=== PATIENT | male | born 1940 | race Caucasian/White ===

== ENCOUNTER 2021-01-24 17:16 | Inpatient (IN) | payer MEDICARE, OTHER ==
[~2021-01-24] VITALS: Ht 175.3 cm; Wt 73.5 kg
[~2021-01-24 17:16] MED LIST changes: -IRON1TAB37 PO
[2021-01-24] MEDS ORDERED: SODIUM CHLORIDE FLUSH 10ML SYR IVF ONE (18:00)
--- NOTE | 2021-01-24 19:42 | NUR ---
datacap developer note: Pt to room from lobby via wheelchair
[2021-01-24 21:11] LABS: ABSOLUTE RETICS # 0.069 x10^6/uL (0.5-1.5); RED BLOOD COUNT 2.47 x10^6/uL (4.38-5.82); RETICULOCYTE COUNT % 2.78 % (0.5-1.5)
[2021-01-24 21:18] VITALS: BP 111/39
[2021-01-24 21:23] LABS: INTERNATIONAL NORMALIZED RATIO 1.11 (0.93-1.1); PROTHROMBIN TIME 11.8 Seconds (9.6-11.5)
[2021-01-24] MEDS ORDERED: ONDANSETRON 2MG/ML, 2ML IVPush PRN (21:30)
[2021-01-24] MEDS ORDERED: POLYETHYLENE GLYCOL 17 GM PACKET PO PRN (21:30)
[2021-01-24] MEDS ORDERED: ACETAMINOPHEN 325 MG TABLET PO PRN (21:30)
[2021-01-24] MEDS ORDERED: MELATONIN 5 MG TABLET PO PRN (21:30)
[2021-01-24] MEDS ORDERED: morphine SULFATE 10 MG/ML, 1ML IVPush PRN (21:30)
[2021-01-24] MEDS ORDERED: LABETALOL 5MG/ML, 20ML IVPush PRN (21:30)
[2021-01-24 21:37] VITALS: BP 129/44
--- NOTE | 2021-01-24 23:14 | NUR ---
PT LAYING IN BED, ALL NEEDS IN REACH, CALL LIGHT IN REACH, NAD AT THIS TIME
[2021-01-25] VITALS (12 sets, daily range): BP systolic 107–172; BP diastolic 46–70
[2021-01-25] MEDS: FAMOTIDINE 20 MG/2 ML IVPush SCH ×3 (00:46→21:02)
[2021-01-25 08:49] LABS: MEAN CORPUSCULAR HEMOGLOBIN 23.7 pg (27.5-34.5); MEAN CORPUSCULAR HGB CONC 31.7 g/dL (33.2-36.2); MEAN PLATELET VOLUME 10.1 fL (7.4-10.4); PLATELET COUNT 271 x10^3/uL (130-400); RED BLOOD COUNT 3.09 x10^6/uL (4.38-5.82); RED CELL DISTRIBUTION WIDTH 24.9 % (9.4-14.8)
[2021-01-25 08:55] LABS: ANION GAP 9 mmol/L (5-15); CALCIUM 8.4 mg/dL (8.5-10.1); CHLORIDE 112 mmol/L (98-107); CREATININE 1.26 mg/dL (0.7-1.3)
[2021-01-25 09:03] LABS: ACANTHOCYTES 1+; ANISOCYTOSIS 1+; CRENATED 1+; HYPOCHROMIA 1+; LYMPH#(MANUAL) 2.29 x10^3/uL (1-3.4); LYMPHS% (MANUAL) 26 % (22-44); MICROCYTOSIS 1+; MONOS#(MANUAL) 0.35 x10^3/uL (0.3-2.7); MONOS% (MANUAL) 4 % (2-9); OVALOCYTES 1+; POLYCHROMASIA 1+; SCHISTOCYTES 1+; SEG#(MANUAL) 6.16 x10^3/uL (1.8-6.8); SEGS% (MANUAL) 70 % (42-75)
[2021-01-25 09:04] LABS: <PLATELET ESTIMATE> ADEQUATE; LARGE PLATELETS 1+
[2021-01-25] MEDS ORDERED: CYANOCOBALAMIN 1,000 MCG/ML, 1ML IM ONE (13:00)
[2021-01-25] MEDS ORDERED: IRON DEXTRAN COMPLEX 25 MG in SODIUM CHLORIDE 0.9% 50 ML IV ONE (13:00)
[2021-01-25] MEDS ORDERED: MAGNESIUM SULFATE PMX 2GM/50ML 50 ML IV ONE (13:00)
[2021-01-25] MEDS ORDERED: EPINEPHRINE 1 MG/ML, 1ML SQ PRN (13:30)
[2021-01-25] MEDS ORDERED: IRON1TAB37 PO (13:58)
[2021-01-25] MEDS ORDERED: IRON SUCROSE COMPLEX 100MG/5ML IV ONE (14:00)
[2021-01-25] MEDS: MULTIVITS,STRESS FORMULA 1 TABLET PO SCH (14:30)
[2021-01-25] MEDS: ZINC SULFATE 220 MG CAPSULE PO SCH (14:30)
[2021-01-25] MEDS: CHOLECALCIFEROL 5,000u TAB PO SCH (14:31)
[2021-01-25] MEDS: ASCORBIC ACID 500 MG TABLET PO SCH ×2 (14:31→16:44)
[2021-01-25] MEDS ORDERED: IRON DEXTRAN COMPLEX 1,700 MG in SODIUM CHLORIDE 0.9% 250 ML IV ONE (17:00)
[2021-01-25 23:45] LABS: OCCULT BLOOD POSITIVE (NEGATIVE)
[2021-01-26] VITALS (11 sets, daily range): BP systolic 132–173; BP diastolic 55–73
[2021-01-26 09:17] LABS: BASOPHILS % (AUTO) 1 % (0-1); EOSINOPHILS % (AUTO) 5 % (1-7); LYMPHOCYTES % (AUTO) 12 % (22-44); MEAN CORPUSCULAR HEMOGLOBIN 24.8 pg (27.5-34.5); MEAN CORPUSCULAR HGB CONC 32.7 g/dL (33.2-36.2); MEAN PLATELET VOLUME 9.3 fL (7.4-10.4); MONOCYTES % (AUTO) 9 % (2-9); NEUTROPHILS % (AUTO) 73 % (42-75); PLATELET COUNT 270 x10^3/uL (130-400); RED BLOOD COUNT 3.58 x10^6/uL (4.38-5.82); RED CELL DISTRIBUTION WIDTH 24.3 % (9.4-14.8)
[2021-01-26] MEDS: ASCORBIC ACID 500 MG TABLET PO SCH (09:48)
[2021-01-26] MEDS: MULTIVITS,STRESS FORMULA 1 TABLET PO SCH (09:48)
[2021-01-26] MEDS: ZINC SULFATE 220 MG CAPSULE PO SCH (09:48)
[2021-01-26] MEDS: CHOLECALCIFEROL 5,000u TAB PO SCH (09:48)
[2021-01-26] MEDS: FAMOTIDINE 20 MG/2 ML IVPush SCH (09:48)
[2021-01-26 10:03] LABS: <PLATELET ESTIMATE> ADEQUATE; ACANTHOCYTES 1+; ANISOCYTOSIS 1+; ECHINOCYTES 1+; HYPOCHROMIA 1+; MICROCYTOSIS 1+; POLYCHROMASIA 1+; SPHEROCYTES 1+
[2021-01-26 10:05] LABS: <PLT MORPHOLOGY> NORMAL PLT MORPH; SCHISTOCYTES 1+
== END 2021-01-26 17:15 | disposition home or self-care (01) | DRG 812 ==
LOC: ED 21:52 → EDIP 22:48 → 3N 23:35
PROVIDERS: ADMIT Internal Medicine; ATTEND Family Medicine
PROC: 30233N1 Transfusion of Nonautologous Red Blood Cells into Peripheral Vein, Percutaneous Approach (ICD-10-PCS; principal; 2021-01-24)
DX: D50.9 Iron deficiency anemia, unspecified (principal); I71.4 Abdominal aortic aneurysm, without rupture; I70.209 Unspecified atherosclerosis of native arteries of extremities, unspecified extremity; F19.10 Other psychoactive substance abuse, uncomplicated; E78.5 Hyperlipidemia, unspecified; I10 Essential (primary) hypertension; I25.10 Atherosclerotic heart disease of native coronary artery without angina pectoris; T39.395A Adverse effect of other nonsteroidal anti-inflammatory drugs [NSAID], initial encounter; N40.0 Benign prostatic hyperplasia without lower urinary tract symptoms; Z86.73 Personal history of transient ischemic attack (TIA), and cerebral infarction without residual deficits; Z79.02 Long term (current) use of antithrombotics/antiplatelets; Z87.891 Personal history of nicotine dependence; Z95.1 Presence of aortocoronary bypass graft; Y92.89 Other specified places as the place of occurrence of the external cause
CPT/HCPCS: 36415; 36430; 80048; 82272; 82607; 82728; 83010; 83540; 83550; 83605; 83615; 83735; 85014; 85018; 85025; 85045; 85610; 85730; 86850; 86900; 86923; 99285; G0378; J1750; J1756; J3420; J3475; P9016

== ENCOUNTER → 2021-01-24 | Outpatient (CLI) | payer OTHER ==
[~2021-01-24] MED LIST: ASPI81TA45 PO; ATOR80TA PO; BRIM5DRO3 EACHEYE; CLOP75TA PO; CO Q10 PO; IRON1TAB37 PO; LATA2.5D4 EACHEYE; LOSA100T14 PO; METO25TA35 PO; TAMS-11 PO; VITA1TAB19 PO; vitamin c PO; vitamin d PO
[2021-01-24 16:11] LABS: BASOPHILS % (AUTO) 1 % (0-1); EOSINOPHILS % (AUTO) 1 % (1-7); LYMPHOCYTES % (AUTO) 11 % (22-44); MEAN CORPUSCULAR HEMOGLOBIN 19.9 pg (27.5-34.5); MEAN PLATELET VOLUME 9.8 fL (7.4-10.4); MONOCYTES % (AUTO) 6 % (2-9); NEUTROPHILS % (AUTO) 81 % (42-75); PLATELET COUNT 314 x10^3/uL (130-400); RED BLOOD COUNT 2.53 x10^6/uL (4.38-5.82)
[2021-01-24 16:36] LABS: ANION GAP 9 mmol/L (5-15); CALCIUM 8.3 mg/dL (8.5-10.1); CHLORIDE 113 mmol/L (98-107)
[2021-01-24 16:37] LABS: CREATININE 1.14 mg/dL (0.7-1.3)
[2021-01-24 16:39] LABS: ALANINE AMINOTRANSFERASE 12 U/L (12-78); ALBUMIN 2.9 g/dL (3.4-5.0); ALKALINE PHOSPHATASE 99 U/L (45-117); BILIRUBIN,TOTAL 0.6 mg/dL (0.2-1.0); TOTAL PROTEIN 6.8 g/dL (6.4-8.2)
[2021-01-24 16:43] LABS: MEAN CORPUSCULAR HGB CONC 29.1 g/dL (33.2-36.2)
[2021-01-24 20:39] LABS: HYPOCHROMIA 3+; MICROCYTOSIS 2+
[2021-01-24 20:40] LABS: ACANTHOCYTES 1+; CRENATED 1+; POLYCHROMASIA 1+; SCHISTOCYTES 1+
[2021-01-24 20:41] LABS: <PLATELET ESTIMATE> ADEQUATE; GIANT PLATELETS 1+; SMALL PLATELETS 1+
== END | disposition home or self-care (01) ==
LOC: STAR 14:58
PROVIDERS: ATTEND Surgery
DX: Z01.818 Encounter for other preprocedural examination (principal); J98.4 Other disorders of lung; J84.10 Pulmonary fibrosis, unspecified; R94.31 Abnormal electrocardiogram [ECG] [EKG]; J92.9 Pleural plaque without asbestos
CPT/HCPCS: 36415; 71046; 80053; 85025; 93005

== ENCOUNTER 2021-01-28 05:47 | Inpatient (IN) | payer MEDICARE, OTHER ==
[~2021-01-28] VITALS: Ht 175.3 cm; Wt 86.0 kg
[~2021-01-28 05:47] MED LIST changes: +IRON1TAB37 PO
[2021-01-28] MEDS ORDERED: EPINEPHRINE 1 MG/ML, 1ML ONE (06:44)
[2021-01-28] MEDS ORDERED: HEPARIN 1,000 UNITS/ML, 10ML ONE ×2 (06:44→11:37)
[2021-01-28] MEDS ORDERED: PROTAMINE SULFATE 10 MG/ML, 5ML ONE (06:44)
[2021-01-28] MEDS ORDERED: BUPIVACAINE/PF 0.5% ONE (06:44)
[2021-01-28] MEDS ORDERED: CHLORHEXIDINE 15 ML UDC PO ONE (07:00)
[2021-01-28] MEDS ORDERED: LACTATED RINGERS 1,000 ML IV SCH (07:00)
[2021-01-28] MEDS ORDERED: FENTANYL PF 250 MCG/5ML ONE (07:22)
[2021-01-28] MEDS ORDERED: MIDAZOLAM 1 MG/ML, 2ML ONE (08:20)
[2021-01-28] MEDS ORDERED: VASOPRESSIN 20 UNIT/ML, 1ML ONE (08:35)
[2021-01-28] MEDS ORDERED: PHENYLEPHRINE 10 MG/ML ONE (08:35)
[2021-01-28] MEDS ORDERED: HEPARIN 1,000 UNITS/ML, 30ML ONE (08:55)
[2021-01-28] MEDS ORDERED: ETOMIDATE 20 MG/10 ML ONE (09:05)
[2021-01-28] MEDS ORDERED: ROCURONIUM 10MG/ML,5ML ONE ×3 (09:05→12:24)
[2021-01-28] MEDS ORDERED: SUCCINYLCHOLINE 20 MG/ML, 10ML ONE (09:05)
[2021-01-28] MEDS ORDERED: CEFAZOLIN 1,000 MG ONE ×4 (12:24)
[2021-01-28] MEDS ORDERED: CALCIUM CHLORIDE 10%, 10ML SYR ONE (13:44)
[2021-01-28] MEDS ORDERED: THROMBIN 5,000 UNIT VIAL TP ONE (14:02)
[2021-01-28] MEDS ORDERED: EPHEDRINE 50 MG/ML, 1ML ONE (14:09)
[2021-01-28] MEDS ORDERED: FENTANYL PF 100 MCG/2ML ONE (14:51)
[2021-01-28] MEDS ORDERED: DIPHENHYDRAMINE 50 MG/ML, 1ML IVPush PRN (15:00)
[2021-01-28] MEDS ORDERED: OXYcodone 5 MG/5 ML ORAL.SOL UDC PO PRN (15:00)
[2021-01-28] MEDS ORDERED: PROMETHAZINE 25 MG/ML, 1ML IVPush PRN (15:00)
[2021-01-28] MEDS: PHENYLEPHRINE 50 MG in SODIUM CHLORIDE 0.9% 245 ML IV PRN (15:00)
[2021-01-28] MEDS ORDERED: LABETALOL 5MG/ML, 20ML IV PRN (15:00)
[2021-01-28] MEDS ORDERED: ACETAMINOPHEN 325 MG TABLET PO PRN (15:00)
[2021-01-28] MEDS ORDERED: PHENYLEPHRINE 50 MG in SODIUM CHLORIDE 0.9% 245 ML IV PRN (15:00)
[2021-01-28] MEDS ORDERED: HYDROmorphone 1 MG/ML, 1ML INJ IVPush PRN (15:00)
[2021-01-28] MEDS ORDERED: HALOPERIDOL 5 MG/ML IV PRN (15:00)
[2021-01-28] MEDS ORDERED: MEPERIDINE/PF 25MG/0.5ML IVPush PRN (15:00)
[2021-01-28] MEDS ORDERED: FENTANYL PF 100 MCG/2ML IV PRN (15:00)
[2021-01-28] MEDS ORDERED: hydrALAzine 20 MG/ML, 1ML IV PRN (15:00)
[2021-01-28] MEDS: LACTATED RINGERS 1,000 ML IV SCH ×2 (15:30→19:55)
[2021-01-28] MEDS ORDERED: morphine SULFATE 10 MG/ML, 1ML IV PRN (15:30)
[2021-01-28] MEDS ORDERED: ACETAMINOPHEN 650 MG/20.3 ML UDC PO PRN (15:30)
[2021-01-28] MEDS ORDERED: OXYcodone 5 MG/5 ML ORAL.SOL UDC ONE (15:55)
[2021-01-28] MEDS: ONDANSETRON 2MG/ML, 2ML IVPush PRN (19:49)
[2021-01-28] MEDS: ATORVASTATIN 80 MG TABLET PO SCH (20:15)
[2021-01-28] MEDS: LATANOPROST OPHTH 0.005%, 2.5ML EACHEYE SCH (20:23)
[2021-01-29] VITALS (13 sets, daily range): BP systolic 77–145; BP diastolic 39–64
[2021-01-29] MEDS: PHENYLEPHRINE 50 MG in SODIUM CHLORIDE 0.9% 245 ML IV PRN (00:24)
[2021-01-29] MEDS: ONDANSETRON 2MG/ML, 2ML IVPush PRN ×3 (03:30→20:14)
[2021-01-29] MEDS ORDERED: ENOXAPARIN 40 MG/0.4 ML SQ SCH (06:00)
[2021-01-29] MEDS: LACTATED RINGERS 1,000 ML IV SCH ×3 (06:21→19:12)
[2021-01-29 06:45] LABS: BASOPHILS % (AUTO) 0 % (0-1); EOSINOPHILS % (AUTO) 0 % (1-7); LYMPHOCYTES % (AUTO) 3 % (22-44); MEAN CORPUSCULAR HEMOGLOBIN 26.1 pg (27.5-34.5); MONOCYTES % (AUTO) 7 % (2-9); NEUTROPHILS % (AUTO) 89 % (42-75); PLATELET COUNT 197 x10^3/uL (130-400); RED CELL DISTRIBUTION WIDTH 24.8 % (9.4-14.8)
[2021-01-29 06:54] LABS: ALANINE AMINOTRANSFERASE 148 U/L (12-78); ALBUMIN 2.1 g/dL (3.4-5.0); ANION GAP 9 mmol/L (5-15); CALCIUM 7.8 mg/dL (8.5-10.1); CHLORIDE 112 mmol/L (98-107); CREATININE 1.37 mg/dL (0.7-1.3)
[2021-01-29 06:56] LABS: ALKALINE PHOSPHATASE 81 U/L (45-117); BILIRUBIN,TOTAL 1.3 mg/dL (0.2-1.0); TOTAL PROTEIN 5.2 g/dL (6.4-8.2)
[2021-01-29 07:20] LABS: ACANTHOCYTES 1+; ANISOCYTOSIS 1+; CRENATED 1+; ECHINOCYTES 1+; HYPOCHROMIA 1+; SCHISTOCYTES 1+
[2021-01-29 07:21] LABS: <PLATELET ESTIMATE> ADEQUATE; <PLT MORPHOLOGY> NORMAL PLT MORPH; SPHEROCYTES 1+
[2021-01-29 07:22] LABS: MICROCYTOSIS 1+
[2021-01-29] MEDS: IRON CARBONYL PO SCH (09:00)
[2021-01-29] MEDS: ASCORBIC ACID PO SCH (09:00)
[2021-01-29] MEDS: MULTIVITS,STRESS FORMULA 1 TABLET PO SCH (09:10)
[2021-01-29] MEDS: TAMSULOSIN 0.4 MG CAP.ER.24H PO SCH (09:10)
[2021-01-29] MEDS ORDERED: LACTATED RINGERS 1,000 ML IVBOLUS ONE (12:00)
[2021-01-29] MEDS ORDERED: LACTATED RINGERS 1,000 ML IV SCH (13:30)
[2021-01-29] MEDS ORDERED: PHENYLEPHRINE 50 MG in SODIUM CHLORIDE 0.9% 245 ML IV PRN (15:00)
[2021-01-29 19:49] LABS: ANION GAP 6 mmol/L (5-15); CHLORIDE 109 mmol/L (98-107); CREATININE 1.25 mg/dL (0.7-1.3)
[2021-01-29] MEDS: ATORVASTATIN 80 MG TABLET PO SCH (20:14)
[2021-01-29] MEDS: LATANOPROST OPHTH 0.005%, 2.5ML EACHEYE SCH (20:15)
[2021-01-30] MEDS: LACTATED RINGERS 1,000 ML IV SCH (03:15)
[2021-01-30 04:00] VITALS: BP 140/40
[2021-01-30 04:15] VITALS: BP 138/47
[2021-01-30 04:30] VITALS: BP 134/40
[2021-01-30] MEDS ORDERED: PANTOPRAZOLE 40 MG IV IVPush SCH (04:30)
[2021-01-30 04:36] LABS: BASOPHILS % (AUTO) 0 % (0-1); EOSINOPHILS % (AUTO) 0 % (1-7); LYMPHOCYTES % (AUTO) 2 % (22-44); MEAN CORPUSCULAR HEMOGLOBIN 26.7 pg (27.5-34.5); MEAN CORPUSCULAR HGB CONC 32.9 g/dL (33.2-36.2); MONOCYTES % (AUTO) 5 % (2-9); NEUTROPHILS % (AUTO) 92 % (42-75); PLATELET COUNT 151 x10^3/uL (130-400); RED BLOOD COUNT 3.17 x10^6/uL (4.38-5.82)
[2021-01-30 04:45] VITALS: BP 139/40
[2021-01-30 04:53] LABS: ALBUMIN 1.7 g/dL (3.4-5.0); ANION GAP 4 mmol/L (5-15); CALCIUM 7.6 mg/dL (8.5-10.1); CHLORIDE 109 mmol/L (98-107)
[2021-01-30 04:57] LABS: ALANINE AMINOTRANSFERASE 130 U/L (12-78); ALKALINE PHOSPHATASE 73 U/L (45-117); BILIRUBIN,TOTAL 1.3 mg/dL (0.2-1.0); CREATININE 0.98 mg/dL (0.7-1.3); TOTAL PROTEIN 4.9 g/dL (6.4-8.2)
[2021-01-30 05:00] VITALS: BP 148/45
[2021-01-30] MEDS: ONDANSETRON 2MG/ML, 2ML IVPush PRN (05:01)
[2021-01-30 05:15] VITALS: BP 150/44
[2021-01-30] MEDS ORDERED: POTASSIUM CHLORIDE 20 MEQ TAB.ER.PRT PO ONE ×2 (05:30→14:00)
[2021-01-30] MEDS ORDERED: POTASSIUM CHLORIDE 20 MEQ in SODIUM CHLORIDE 0.9% 250 ML IV ONE (05:30)
[2021-01-30] MEDS ORDERED: MAGNESIUM SULFATE PMX 2GM/50ML 50 ML IV ONE (05:30)
[2021-01-30] MEDS ORDERED: ASPIRIN 81 MG TABLET EC PO SCH (06:00)
[2021-01-30 06:33] LABS: GASTRIC OCCULT BLD POSITIVE (NEGATIVE); GASTRIC PH 4 (1-7)
[2021-01-30] MEDS ORDERED: SODIUM PHOSPHATE 10 MMOL in SODIUM CHLORIDE 0.9% 500 ML IV ONE (07:30)
[2021-01-30] MEDS: ASCORBIC ACID PO SCH (09:00)
[2021-01-30] MEDS: IRON CARBONYL PO SCH (09:00)
[2021-01-30] MEDS: PANTOPRAZOLE 40MG TABLET PO SCH ×2 (09:58→21:15)
[2021-01-30] MEDS: MULTIVITS,STRESS FORMULA 1 TABLET PO SCH (09:59)
[2021-01-30] MEDS: TAMSULOSIN 0.4 MG CAP.ER.24H PO SCH (09:59)
[2021-01-30] MEDS ORDERED: FUROSEMIDE 20 MG/2 ML IV ONE (14:00)
[2021-01-30] MEDS ORDERED: LACTATED RINGERS 1,000 ML IV SCH (15:30)
[2021-01-30] MEDS: LATANOPROST OPHTH 0.005%, 2.5ML EACHEYE SCH (21:15)
[2021-01-30] MEDS: ATORVASTATIN 80 MG TABLET PO SCH (21:15)
[2021-01-31 04:51] LABS: BASOPHILS % (AUTO) 0 % (0-1); EOSINOPHILS % (AUTO) 0 % (1-7); LYMPHOCYTES % (AUTO) 3 % (22-44); MEAN CORPUSCULAR HEMOGLOBIN 26.4 pg (27.5-34.5); MEAN CORPUSCULAR HGB CONC 32.1 g/dL (33.2-36.2); MEAN PLATELET VOLUME 9.7 fL (7.4-10.4); MONOCYTES % (AUTO) 5 % (2-9); NEUTROPHILS % (AUTO) 92 % (42-75); PLATELET COUNT 158 x10^3/uL (130-400); RED BLOOD COUNT 3.07 x10^6/uL (4.38-5.82); RED CELL DISTRIBUTION WIDTH 27.4 % (9.4-14.8)
[2021-01-31 04:59] LABS: ANION GAP 6 mmol/L (5-15); CALCIUM 7.9 mg/dL (8.5-10.1); CHLORIDE 109 mmol/L (98-107); CREATININE 0.85 mg/dL (0.7-1.3)
[2021-01-31 05:52] LABS: ACANTHOCYTES 1+; ANISOCYTOSIS 1+; ECHINOCYTES 1+; HYPOCHROMIA 1+; MICROCYTOSIS 1+; SCHISTOCYTES 1+; SPHEROCYTES 1+
[2021-01-31 05:54] LABS: <PLATELET ESTIMATE> ADEQUATE; <PLT MORPHOLOGY> NORMAL PLT MORPH
[2021-01-31] MEDS: ASCORBIC ACID PO SCH (08:36)
[2021-01-31] MEDS: IRON CARBONYL PO SCH (08:36)
[2021-01-31] MEDS: MULTIVITS,STRESS FORMULA 1 TABLET PO SCH (08:37)
[2021-01-31] MEDS: PANTOPRAZOLE 40MG TABLET PO SCH ×2 (08:37→21:20)
[2021-01-31] MEDS: TAMSULOSIN 0.4 MG CAP.ER.24H PO SCH (08:37)
[2021-01-31 20:12] VITALS: BP 154/64
[2021-01-31] MEDS: ATORVASTATIN 80 MG TABLET PO SCH (21:19)
[2021-01-31] MEDS: LATANOPROST OPHTH 0.005%, 2.5ML EACHEYE SCH (21:19)
[2021-02-01 02:00] VITALS: BP 124/50
[2021-02-01 07:36] LABS: BASOPHILS % (AUTO) 0 % (0-1); EOSINOPHILS % (AUTO) 1 % (1-7); LYMPHOCYTES % (AUTO) 8 % (22-44); MEAN CORPUSCULAR HEMOGLOBIN 26.9 pg (27.5-34.5); MEAN CORPUSCULAR HGB CONC 32.7 g/dL (33.2-36.2); MEAN PLATELET VOLUME 9.4 fL (7.4-10.4); MONOCYTES % (AUTO) 6 % (2-9); NEUTROPHILS % (AUTO) 85 % (42-75); PLATELET COUNT 190 x10^3/uL (130-400); RED BLOOD COUNT 2.86 x10^6/uL (4.38-5.82); RED CELL DISTRIBUTION WIDTH 27.6 % (9.4-14.8)
[2021-02-01] MEDS: ASCORBIC ACID PO SCH (07:44)
[2021-02-01] MEDS: IRON CARBONYL PO SCH (07:44)
[2021-02-01] MEDS: MULTIVITS,STRESS FORMULA 1 TABLET PO SCH (07:54)
[2021-02-01] MEDS: PANTOPRAZOLE 40MG TABLET PO SCH ×2 (07:54→21:00)
[2021-02-01] MEDS: TAMSULOSIN 0.4 MG CAP.ER.24H PO SCH (07:54)
[2021-02-01 08:37] LABS: ANION GAP 7 mmol/L (5-15); CALCIUM 7.8 mg/dL (8.5-10.1); CHLORIDE 108 mmol/L (98-107)
[2021-02-01 08:38] LABS: CREATININE 0.95 mg/dL (0.7-1.3)
[2021-02-01 13:28] VITALS: BP 136/62
[2021-02-01] MEDS ORDERED: MAGNESIUM HYDROXIDE 8%, 30ML UDC PO PRN (16:30)
[2021-02-01] MEDS ORDERED: POLYETHYLENE GLYCOL 17 GM PACKET PO PRN (16:30)
[2021-02-01] MEDS ORDERED: BISACODYL 10 MG SUPP PR PRN (16:30)
[2021-02-01 19:21] VITALS: BP 143/69
[2021-02-01] MEDS: LATANOPROST OPHTH 0.005%, 2.5ML EACHEYE SCH (21:00)
[2021-02-01] MEDS: ATORVASTATIN 80 MG TABLET PO SCH (21:00)
[2021-02-02 00:51] VITALS: BP 114/55
[2021-02-02] MEDS ORDERED: ASPIRIN 81 MG TABLET EC PO SCH (06:00)
[2021-02-02 07:16] VITALS: BP 155/58
[2021-02-02] MEDS: MULTIVITS,STRESS FORMULA 1 TABLET PO SCH (08:20)
[2021-02-02] MEDS: TAMSULOSIN 0.4 MG CAP.ER.24H PO SCH (08:21)
[2021-02-02] MEDS: PANTOPRAZOLE 40MG TABLET PO SCH (08:21)
[2021-02-02] MEDS: IRON CARBONYL PO SCH (08:26)
[2021-02-02] MEDS: ASCORBIC ACID PO SCH (08:26)
[2021-02-02 13:50] VITALS: BP 149/55
[2021-02-02] MEDS ORDERED: OXYC5CAP2 PO (15:08)
[2021-02-02] MEDS ORDERED: DOCU-131 PO (15:09)
[2021-02-02] MEDS ORDERED: PANT40TA3 PO (15:09)
== END 2021-02-02 16:14 | disposition home or self-care (01) | DRG 269 ==
LOC: ORIP 05:47 → EDSTATUS 07:30 → CCU 16:23 → 4NE 01-31 07:55
PROVIDERS: ADMIT Surgery; ATTEND Surgery
PROC: 04CL0ZZ Extirpation of Matter from Left Femoral Artery, Open Approach (ICD-10-PCS; 2021-01-28)
PROC: 04CH0ZZ Extirpation of Matter from Right External Iliac Artery, Open Approach (ICD-10-PCS; 2021-01-28)
PROC: 04CK0ZZ Extirpation of Matter from Right Femoral Artery, Open Approach (ICD-10-PCS; 2021-01-28)
PROC: 04UL0JZ Supplement Left Femoral Artery with Synthetic Substitute, Open Approach (ICD-10-PCS; 2021-01-28)
PROC: 04UK0JZ Supplement Right Femoral Artery with Synthetic Substitute, Open Approach (ICD-10-PCS; 2021-01-28)
PROC: 047D3DZ Dilation of Left Common Iliac Artery with Intraluminal Device, Percutaneous Approach (ICD-10-PCS; 2021-01-28)
PROC: 047J3DZ Dilation of Left External Iliac Artery with Intraluminal Device, Percutaneous Approach (ICD-10-PCS; 2021-01-28)
PROC: 03HY32Z Insertion of Monitoring Device into Upper Artery, Percutaneous Approach (ICD-10-PCS; 2021-01-28)
PROC: 30233N1 Transfusion of Nonautologous Red Blood Cells into Peripheral Vein, Percutaneous Approach (ICD-10-PCS; 2021-01-28)
PROC: B41D1ZZ Fluoroscopy of Aorta and Bilateral Lower Extremity Arteries using Low Osmolar Contrast (ICD-10-PCS; 2021-01-28)
PROC: 04V03EZ Restriction of Abdominal Aorta with Branched or Fenestrated Intraluminal Device, One or Two Arteries, Percutaneous Approach (ICD-10-PCS; principal; 2021-01-28 07:30)
DX: I71.4 Abdominal aortic aneurysm, without rupture (principal); D62 Acute posthemorrhagic anemia; I50.32 Chronic diastolic (congestive) heart failure; E44.1 Mild protein-calorie malnutrition; K92.0 Hematemesis; I70.223 Atherosclerosis of native arteries of extremities with rest pain, bilateral legs; R73.9 Hyperglycemia, unspecified; R34 Anuria and oliguria; Z68.28 Body mass index [BMI] 28.0-28.9, adult; C67.9 Malignant neoplasm of bladder, unspecified; E78.5 Hyperlipidemia, unspecified; I11.0 Hypertensive heart disease with heart failure; I25.10 Atherosclerotic heart disease of native coronary artery without angina pectoris; I25.5 Ischemic cardiomyopathy; I35.0 Nonrheumatic aortic (valve) stenosis; I65.23 Occlusion and stenosis of bilateral carotid arteries; N40.0 Benign prostatic hyperplasia without lower urinary tract symptoms; J44.9 Chronic obstructive pulmonary disease, unspecified; Z80.8 Family history of malignant neoplasm of other organs or systems; Z82.49 Family history of ischemic heart disease and other diseases of the circulatory system; Z85.51 Personal history of malignant neoplasm of bladder; Z86.79 Personal history of other diseases of the circulatory system; Z87.891 Personal history of nicotine dependence; Z90.79 Acquired absence of other genital organ(s); Z95.1 Presence of aortocoronary bypass graft; Z88.2 Allergy status to sulfonamides; I95.89 Other hypotension
CPT/HCPCS: 34705; 36415; 37220; 71046; 74018; 74176; 80048; 80053; 82271; 82330; 82803; 82947; 83036; 83735; 84100; 84132; 84295; 85014; 85018; 85025; 86850; 86900; 86923; 87081; C1725; G0378; J0171; J0690; J1644; J1650; J2250; J2405; J2720; J3010; C1751; C1768; C1769; C1874; C1876; C1894; C9113; J0330; J1940; J2270; J2370; J3475; J7040; J7050; J7120; P9016